=== PATIENT | female | born 2000 | race Caucasian/White ===

== ENCOUNTER 2022-10-10 14:09 | Outpatient (REF) | payer OTHER, SELFPAY ==
[2022-10-10 15:45] LABS: Basophils Absolute Auto 0.03 K/uL (0.00-0.30); Basophils Percent Auto 0.4 % (0.0-3.0); Eosinophils Absolute Auto 0.25 K/uL (0.00-0.50); Eosinophils Percent Auto 3.2 % (0.0-7.0); Hematocrit 44.2 % (33.0-51.0); Hemoglobin* 14.7 gm/dL (12.0-16.0); Immature Granulocytes Abs Auto 0.05 K/uL (0.00-0.30); Immature Granulocytes Pct Auto 0.6 %; Lymphocytes Absolute Auto 1.73 K/uL (0.90-2.90); Lymphocytes Percent Auto 21.9 % (20-44); Mean Corpuscular HGB Conc 33 gm/dL (32-36); Mean Corpuscular Hemoglobin 30 pg (26-34); Mean Corpuscular Volume 90 fL (80-100); Monocytes Percent Auto 6.2 % (0.0-11.0); Neutrophils Absolute Auto 5.34 K/uL (1.7-7.0); Neutrophils Percent Auto 67.7 % (42.0-72.0); Platelet Count* 219 K/uL (140-440); RDW Coefficient of Variation % 12.7 % (11.5-15.5); Red Blood Count 4.93 m/uL (4.00-5.20); White Blood Count* 7.89 K/uL (4.50-11.00)
[2022-10-10 15:47] LABS: Albumin* 4.6 g/dL (3.3-5.0); Chloride* 106 mmol/L (96-114); Sodium* 139 mmol/L (135-149)
[2022-10-10 15:49] LABS: Cholesterol* 120 mg/dL (90-199)
[2022-10-10 15:50] LABS: Alanine Aminotransferase* 39 U/L (4-35); Alkaline Phosphatase* 69 U/L (40-150); Aspartate Amino Transferase* 27 U/L (12-35); Bilirubin Total* 0.5 mg/dL (0.1-1.5); Blood Urea Nitrogen* 15 mg/dL (5-24); Carbon Dioxide* 23 mmol/L (20-32); Creatinine* 0.6 mg/dL (0.5-1.5); Estimated Glomerular Filt Rate 130 ml/min; Glucose* 89 mg/dL (60-115); Total Protein* 7.1 g/dL (6.0-8.3); Triglycerides* 100 mg/dL (40-149)
[2022-10-10 15:51] LABS: Calcium* 9.2 mg/dL (8.4-10.6); HDL Cholesterol* 41 mg/dL (>=50); LDL Cholesterol Calculated 59 mg/dL (<100)
[2022-10-10 15:54] LABS: Slide Review Reflex No
[2022-10-12 15:34] LABS: Lithium, Serum or Plasma 0.4 mmol/L (0.5-1.2)
== END 2022-10-10 14:10 | disposition home or self-care (01) ==
LOC: NPINS 14:09
PROVIDERS: Psychiatry & Neurology Child & Adolescent Psychiatry; PCP Family Medicine
DX: F91.3 Oppositional defiant disorder (principal); G47.9 Sleep disorder, unspecified; K59.00 Constipation, unspecified; F84.9 Pervasive developmental disorder, unspecified
CPT/HCPCS: 80053; 80061; 80178; 84443; 85025

== ENCOUNTER 2023-12-11 08:24 | Outpatient (CLI) | payer OTHER, SELFPAY ==
--- NOTE | 2023-12-11 09:53 | W.ANESCHARGE ---
Anesthesia Charges Start Date/Time Anesthesia Start Date: 12/11/23 Anesthesia Start Time: 09:30 Stop Date/Time Anesthesia Stop Date: 12/11/23 Anesthesia Stop Time: 09:50
--- NOTE | 2023-12-11 10:05 | W.ANESCHARGE ---
Anesthesia Charges Start Date/Time Anesthesia Start Date: 12/11/23 Anesthesia Start Time: 09:30 Stop Date/Time Anesthesia Stop Date: 12/11/23 Anesthesia Stop Time: 09:50
== END 2023-12-11 08:25 | disposition home or self-care (01) ==
LOC: OP CLINIC 08:26
PROVIDERS: PCP Family Medicine; Visit Provider Internal Medicine
DX: K30 Functional dyspepsia (principal); R10.13 Epigastric pain
CPT/HCPCS: 00731; 43239; 88305; J2704

== ENCOUNTER 2024-01-01 12:00 | Outpatient (CLI) | payer OTHER, SELFPAY | END 2024-01-01 12:01 | disposition home or self-care (01) | LOC: NFLDREF 01-03 07:38 | PROVIDERS: PCP Family Medicine; Referring Provider Family Medicine; Visit Provider Family Medicine | DX: Z13.220 Encounter for screening for lipoid disorders (principal); Z13.228 Encounter for screening for other metabolic disorders | CPT/HCPCS: 80053; 80061; 84443 ==

== ENCOUNTER 2024-01-11 06:39 | Day surgery (SDC) | payer OTHER, SELFPAY ==
[2024-01-11] MEDS: SODIUM CHLORIDE 0.9 % (FLUSH) 10 ML SYRINGE IVF (07:15)
[2024-01-11] MEDS: LACTATED RINGERS 1000 ML 1,000 ML 100 ML IV ×2 (07:15→08:43)
[2024-01-11 07:19] VITALS: BP 147/78; PULSE 110; RESP 16; TEMP 36.6; O2SAT 93; BMI 38.9
--- NOTE | 2024-01-11 07:34 | P.PCN_ITS ---
Procedure Note Date Seen: 01/11/24 Date of procedure: 01/11/24 Will [facility] bill your pro fee for this procedure?: Yes Procedure Description: Preoperative diagnosis: 23-year-old nulligravid woman with developmental delay who desires IUD removal and replacement and Pap smear. Postoperative diagnosis: Same Procedure: IUD removal and replacement. Pap smear. Both under anesthesia. Anesthesia: Conscious sedation (MAC) Surgeon: Gisele Valdez MD Coal Getter: Not applicable IV Fluid: 1200 mL Estimated blood loss: 1 mL Urine output: Not recorded Drains: None Specimen: Pap smear. Findings: On exam under anesthesia the uterus was midposition, less than 8 week size, mobile without masses palpable. Adnexa without mass or fullness. Strings of the IUD were palpable. Procedure description: Ellyn was taken to the operating room where conscious sedation was found be adequate. She is placed in the dorsal lithotomy position an exam under anesthesia was performed with findings stated above. No prep was needed for this procedure. A sterile, bivalve speculum was advanced into the vaginal canal to visualize the cervix. The IUD strings were noted to be protruding from the external os. A Pap smear was obtained. The IUD strings were grasped with a ring forceps and the IUD removed without difficulty. The uterus was sounded to 7 cm. Cervical dilators needed: No. The IUD was advanced into the uterus using the IUD insertion device. The device was removed and the IUD strings cut to 3-4 cm. The patient tolerated this procedure well. Sponge, lap and instrument counts were correct x2 at the end of the procedure. Anesthesia: MAC
--- NOTE | 2024-01-11 07:34 | W.PM.H&PU ---
History & Physical Update History & Physical Update H&P Reviewed and patient assessed: No changes noted
[2024-01-11 08:20] VITALS: BP 120/79; PULSE 86; RESP 20; TEMP 36.5; O2SAT 95
--- NOTE | 2024-01-11 08:27 | SUR.OPER ---
NO LOCAL USED DURING CASE
[2024-01-11 08:30] VITALS: BP 115/74; PULSE 75; RESP 20; O2SAT 96
--- NOTE | 2024-01-11 08:40 | W.ANESCHARGE ---
Anesthesia Charges Start Date/Time Anesthesia Start Date: 01/11/24 Anesthesia Start Time: 07:57 Stop Date/Time Anesthesia Stop Date: 01/11/24 Anesthesia Stop Time: 08:25
--- NOTE | 2024-01-11 08:50 | SUR.PHASEII ---
Jere by for patient to discharge early.
--- NOTE | 2024-01-11 10:04 | W.ANESCHARGE ---
Anesthesia Charges Start Date/Time Anesthesia Start Date: 01/11/24 Anesthesia Start Time: 07:57 Stop Date/Time Anesthesia Stop Date: 01/11/24 Anesthesia Stop Time: 08:25
== END 2024-01-11 08:51 | disposition home or self-care (01) ==
PROVIDERS: PCP Family Medicine; Visit Provider Obstetrics & Gynecology
PROC: (CPT 58301; principal; 2024-01-11 08:15)
DX: Z30.433 Encounter for removal and reinsertion of intrauterine contraceptive device (principal); R62.50 Unspecified lack of expected normal physiological development in childhood
CPT/HCPCS: 58301; 58300; 00940; J2250; J2405; J2704; J3010; J7120; J7298

== ENCOUNTER 2024-07-22 13:22 | Outpatient (REF) | payer OTHER, SELFPAY ==
[2024-07-22 14:44] LABS: Chloride* 110 mmol/L (96-114)
[2024-07-22 14:45] LABS: Potassium* 4.1 mmol/L (3.6-5.1); Sodium* 139 mmol/L (135-149)
[2024-07-22 14:47] LABS: Cholesterol* 112 mg/dL (90-199); Creatinine* 0.9 mg/dL (0.5-1.5); Estimated Glomerular Filt Rate 92 ml/min
[2024-07-22 14:48] LABS: Anion Gap 10 mEq/L (7-15); Blood Urea Nitrogen* 10 mg/dL (5-24); Calcium* 9.7 mg/dL (8.4-10.6); Carbon Dioxide* 19 mmol/L (20-32); Glucose* 102 mg/dL (60-115); Triglycerides* 174 mg/dL (40-149)
[2024-07-22 15:04] LABS: HDL Cholesterol* 38 mg/dL (>=50); LDL Cholesterol Calculated 39 mg/dL (<100)
[2024-07-22 15:43] LABS: Hemoglobin A1C* 5.2 % (0-5.6)
[2024-07-23 18:17] LABS: Lithium, Serum or Plasma 0.4 mmol/L (0.5-1.2)
== END 2024-07-22 13:23 | disposition home or self-care (01) ==
LOC: NPINS 13:22
PROVIDERS: Visit Provider Physician Assistant
DX: F31.9 Bipolar disorder, unspecified (principal)
CPT/HCPCS: 80048; 80061; 80178; 83036; 84443

== ENCOUNTER 2025-05-05 16:40 | Outpatient (CLI) | payer OTHER, SELFPAY | END 2025-05-05 16:41 | disposition home or self-care (01) | PROVIDERS: PCP Family Medicine; Visit Provider Family Medicine | DX: K76.0 Fatty (change of) liver, not elsewhere classified (principal); G47.9 Sleep disorder, unspecified | CPT/HCPCS: 80053; 80061; 84443 ==